=== PATIENT | female | born 1955 | race Caucasian/White ===

== ENCOUNTER 2016-08-26 05:20 | Inpatient (IN) | payer BC, OTHER ==
--- NOTE | 2016-08-20 17:59 | PREOPHP ---
DATE OF ADMISSION: 08/26/2016 PREOPERATIVE INTERNAL MEDICINE CONSULTATION The patient to have surgery with Dr. Chele Amezcua on 08/26/2016. REASON FOR CONSULTATION: Consultation requested by Dr. Chele Amezcua for medical evaluation and clearance of a 61-year-old woman about to undergo surgery. Thank you, Dr. Amezcua, for allowing us to participate in the care of this patient. HISTORY OF PRESENT ILLNESS: Hattiese Luis Liang, a 61-year-old woman with issues with her neck, i s currently being admitted for correction of the above. In terms of a prior surgical history, patient has had a with the delivery of her one son a nd tonsil and adenoid surgery. Other than that, she has had no medical hospitalizations, no other s urgery. She has not broken any bones. MEDICATIONS: She currently only takes allergy medicines, namely Tigist-D as needed and no other pr escription drugs. ALLERGIES: SHE IS NOT ALLERGIC TO ANY MEDICATIONS, BUT DOES HAVE SOME ENVIRONMENTAL ALLERGIES. SOCIAL HISTORY: The patient is , has 1 son. She does not smoke. Alcohol socially. Does dr ink coffee, is employed and usually has no difficulty sleeping at night. FAMILY HISTORY: Both parents are . Father at age 53 of an OR. Mother is 82 when she of a stroke and hypertension. One brother has diabetes. Two sisters, one has hypertension and one had ovarian cancer, but they are both living. There is a family history of diabetes, heart, hy pertension, strokes, cancer. No thyroid history. REVIEW OF SYSTEMS HEENT: Denies any significant headaches. CARDIORESPIRATORY: Denies any chest pain or shortness of breath. GASTROINTESTINAL: No melena or hematemesis. GENITOURINARY: No urgency, frequency. GYNECOLOGIC: Post-menopause, up to date with her lockstitch tunnel elastic operator. MUSCULOSKELETAL: Positive for neck pain. She does have some issues with her right and left knee, but not as severe as her neck. NEUROPSYCHIATRIC: Unremarkable. GENERAL HEALTH: As above. PHYSICAL EXAMINATION: VITAL SIGNS: The patient's blood pressure was 112/70, pulse was 80 and regular, respirations were 1 8, temperature 97.8, height 5 feet 4 inches, weight 148 pounds. GENERAL: The patient was noted to be a well-developed, well-nourished female, alert and cooperative , in no apparent acute distress, oriented to time, place, and person. HEAD, EARS, EYES, NOSE AND THROAT: Head was atraumatic. Eyes: Pupils were equal, reacted to light and accommodation. Fundi were benign. Tympanic membranes were unremarkable. Nose was negative. Mouth was unremarkable. Fair oral hygiene was present. NECK: Supple without any rigidity. Trachea was midline. Thyroid was within normal limits. Neck v eins were flat. Carotid pulses were equal. No bruits were heard. BACK: Unremarkable. CHEST: Symmetrical. BREASTS AND AXILLARY: Did not reveal any masses. LUNGS: Clear to percussion and auscultation. HEART: PMI is fifth intercostal space at the midclavicular line. Regular sinus rhythm was noted. No significant murmurs, rubs, or gallops being elicited. ABDOMEN: Soft, good bowel sounds were noted. No significant organomegaly, masses, or tenderness. GENITALIA: Normal female external genitalia. PELVIC/RECTAL: Up to date with her lockstitch tunnel elastic operator unremarkable. EXTREMITIES: Did not reveal any clubbing, edema or cyanosis. Peripheral pulses were physiologic. SKIN: Moist and warm without any eruptions. No gross lymphadenopathy was noted. NEUROLOGIC: Grossly intact. IMPRESSION: 1. Cervical disk disease. 2. Menopausal syndrome. 3. Degenerative joint disease. 4. Stable health. DISCUSSION: Review of laboratory and other data revealed the following: The patient's chemistry pa raudel including electrolytes, glucose, BUN, creatinine, liver function tests, calcium, thyroid functio n tests, CBC, sed rate, UA, PT and PTT were basically unremarkable, minimally elevated white count a nd no sign of infection being with no symptoms and no other complaints. Patient's EKG was normal, a s was her chest x-ray. DISCUSSION: Dr. Amezcua, I see no contraindication to this patient undergoing current proposed lynn rgery under desired form of anesthesia. I feel she is a suitable candidate at this particular point in time and we will be more than happy to follow her along with you during her stay at [facility]. Thank you again, Dr. Amezcua, for allowing us to participate in the care of this patient. Dictated By: JAREN WILLS/VIVI Conf#: [id number] DID#: [id number]
[~2016-08-26] VITALS: Ht 161.3 cm; Wt 68.9 kg
[2016-08-26] VITALS (27 sets, daily range): BP systolic 131–160; BP diastolic 55–82; PULSE 65–96; RESP 13–21; Ht 161.3 cm; Wt 68.9 kg
[2016-08-26] MEDS ORDERED: vicodin PO (05:58)
[2016-08-26] MEDS ORDERED: CEFAZOLIN 2 GM/50 ML (PMX) 50 ML IVPB SCH (06:30)
[2016-08-26] MEDS ORDERED: LACTATED RINGER'S 1,000 ML IV* SCH (06:30)
--- NOTE | 2016-08-26 06:53 | HPN ---
Date/Time of Note Date/Time of Note DATE: 08/26/16 TIME: 06:53 Interval H&P Admission Note Pt. seen H&P reviewed: No system changes MILLI ONEILL MD Aug 26, 2016 06:53
[2016-08-26] MEDS ORDERED: HYDROmorphONE 2 MG/ML SYG ONE (06:55)
[2016-08-26] MEDS ORDERED: DEXAMETHASONE 4 MG/ML 1 ML INJ ONE (06:55)
[2016-08-26] MEDS ORDERED: PROPOFOL 20 ML ONE (06:55)
[2016-08-26] MEDS ORDERED: METOCLOPRAMIDE 10 MG INJ ONE (06:55)
[2016-08-26] MEDS ORDERED: SUCCINYLCHOLINE CHLORIDE 100 MG/5 ML SYG IV ONE (06:55)
[2016-08-26] MEDS ORDERED: MIDAZOLAM 1 MG/ML 2 ML INJ ONE (06:55)
[2016-08-26] MEDS ORDERED: ROCURONIUM 50 MG INJ ONE (06:55)
[2016-08-26] MEDS ORDERED: HYDROmorphONE 1 MG/ML SYG IV PRN (07:00)
[2016-08-26] MEDS ORDERED: DIPHENHYDRAMINE 50 MG INJ IV PRN ×2 (07:00→08:00)
[2016-08-26] MEDS ORDERED: CEPASTAT LOZENGE MT PRN (07:00)
[2016-08-26] MEDS ORDERED: CYCLOBENZAPRINE 10 MG TAB PO PRN (07:00)
[2016-08-26] MEDS: CEFAZOLIN 1 GM/50 ML (PMX) 50 ML IVPB SCH ×3 (07:00→22:56)
[2016-08-26] MEDS ORDERED: BISACODYL 10 MG SUPP PR PRN (07:00)
[2016-08-26] MEDS ORDERED: ONDANSETRON 4 MG INJ IV PRN ×2 (07:00→08:00)
[2016-08-26] MEDS ORDERED: ACETAMINOPHEN 325 MG TAB PO PRN (07:00)
[2016-08-26] MEDS ORDERED: DIPHENHYDRAMINE 25 MG CAP PO PRN (07:00)
[2016-08-26] MEDS ORDERED: HYDROCODONE/APAP (10/325) TAB PO PRN ×2 (07:00)
[2016-08-26] MEDS ORDERED: DESFLURANE 15 MIN ONE (07:00)
[2016-08-26] MEDS ORDERED: NALOXONE (0.4 MG/ML) INJ IV PRN (07:00)
[2016-08-26] MEDS ORDERED: PROPOFOL 200 MG INJ ONE (07:00)
[2016-08-26] MEDS ORDERED: POLYMYXIN/BACITRACIN 1L IRRIG ONE (07:12)
[2016-08-26] MEDS ORDERED: SODIUM CL BACTERIOSTATIC 30 ML INJ ONE (07:12)
[2016-08-26] MEDS ORDERED: THROMBIN 5000 UNIT VIAL ONE (07:12)
[2016-08-26] MEDS ORDERED: BUPIVACAINE 0.25%/EPI (SDV) 30 ML INJ ONE (07:12)
[2016-08-26] MEDS ORDERED: GELATIN SIZE 100 SPONGE ONE (07:12)
[2016-08-26] MEDS ORDERED: SURGIFOAM POWDER 1 GM KIT ONE (07:17)
[2016-08-26] MEDS ORDERED: CEFAZOLIN 1 GM INJ ONE (07:42)
[2016-08-26] MEDS ORDERED: HYDROmorphONE (0.2 MG/ML) 10ML SYG IV PRN ×2 (08:00)
[2016-08-26] MEDS ORDERED: METOCLOPRAMIDE 10 MG INJ IV PRN (08:00)
[2016-08-26] MEDS ORDERED: MEPERIDINE 25 MG INJ IV PRN (08:00)
[2016-08-26] MEDS: DOCUSATE SODIUM 100 MG CAP PO SCH ×2 (09:00→20:31)
[2016-08-26] MEDS: HYDROmorphONE (0.2 MG/ML) 10ML SYG IV PRN ×4 (10:24→10:38)
[2016-08-26] MEDS: HYDROmorphONE 0.2 MG/ML PCA IV SCH ×2 (10:42→18:55)
--- NOTE | 2016-08-26 10:46 | OPR ---
DATE OF OPERATION: 08/26/2016 PREOPERATIVE DIAGNOSES: C5 to C6, C6 to C7 cervical disk disease and stenosis with radiculopathy. POSTOPERATIVE DIAGNOSIS: C5 to C6, C6 to C7 cervical disk disease and stenosis with radiculopathy. PROCEDURE PERFORMED: 1. Anterior cervical diskectomy and spinal cord decompression at C5 to C6, C6 to C7. 2. Anterior cervical fusion at C5 to C6 and C6 to C7. 3. Placement of intervertebral biomechanical device at C5 to C6 and C6 to C7. 4. Anterior cervical hardware placement at C5, C6, C7. 5. Use of allograft. 6. Use of C-arm fluoroscopy with interpretation without radiologist present. 7. Use of operative microscope. 8. Intraoperative neuromonitoring (2 hours). IMPLANTS: 1. NeuroStructures Transom 26 mm plate with 12 mm screws. 2. NeuroStructures Cavetto 4 mm cage at C5 to C6 and 5 mm cage at C6 to C7. 3. Fibergraft. PRIMARY SURGEON: Chele Amezcua MD TRAVELING PHLEBOTOMIST: RICHARDSON Acuna NEED FOR POLE CUTTER: During this spinal surgical procedure, my assistant branch manager was used to retract and protect the spinal nerves and dural sac. My assistant branch manager also employed the suction catheters to evacuate blood from the surgical field to improve visualization of the neural structures. The assistant branch manager was medically necessary to facilitate the completion of the surgery in a safe and expeditious manner. State of [place] regulations, as well as hospital bylaws, preclude the use of non-licensed health care personnel, such as operating room technicians, to perform these functions. FINDINGS: The patient had stenosis at C5 to C6 and C6 to C7. Neuromonitoring revealed right C5 amplitude down 40%, right C6 amplitude down 50%, right C7 amplitude down 40%. At the end of the case, nerve signals returned to normal. ESTIMATED BLOOD LOSS: 40 mL. DRAINS: None. SPECIMENS: Disk was sent to pathology. COMPLICATIONS OF PROCEDURES: None. ANESTHESIOLOGIST: Rea Cao MD TYPE OF ANESTHESIA: General. INDICATIONS FOR PROCEDURE: This is a 61-year-old female with cervical radiculopathy in the setting of stenosis. She has failed nonoperative measures ; therefore, I recommended proceeding with the above-mentioned surgery. Preoperatively, we discussed the risks, benefits, and alternatives. She understood and wished to proceed. DESCRIPTION OF PROCEDURE IN DETAIL: The patient was identified in the preoperative holding area, given Ancef antibiotic, taken to the operating room, where she was successfully placed under general anesthesia by Dr. Cao. Neuromonitoring leads were placed, sequential compressive devices were applied. Neuromonitoring was utilized during the procedure for 2 hours to include SSEP , MEP, and EMG. This was performed by [employer]. Start time was 7:50 a.m., closure time was 9:15 a.m. The patient was placed on the operating room table in the supine position. Towel rolls were placed behind the neck and between the scapular blades and the neck was extended. Arms were tucked to the side. Neck was prepped and draped in the usual sterile fashion. Using the C-arm fluoroscope, I identified the incision site. I anesthetized the skin with Marcaine and epinephrine. Incision was made through the skin on the left side of the neck. I incised the platysma in line with the skin incision. I then identified an interval between the sternocleidomastoid and strap muscles and identified the anterior spine. I then placed a bent spinal needle into what was felt to be the C6 to C7 level and I took a lateral film to confirm this level. I then subperiosteally dissected the longus colli musculature and placed self-retaining retractors. The anesthesiologist deflated and reinflated the endotracheal cuff. I used a rongeur to remove the anterior osteophytes at C5 to C6 and C6 to C7. I then initially made an annulotomy at C6 to C7 with radical diskectomy using curettes, Kerrison punches , pituitary rongeurs and a high-speed bur. I decompressed the spinal cord and neural foramina bilaterally. I prepared the endplates. I placed various trials and chose the appropriate graft height. I then took the PEEK cage within which I placed allograft and I impacted the intervertebral biomechanical device at C6 to C7 to complete the fusion at this level. I then turned my attention to the C5 to C6 level. This level was collapsed and therefore I used a bur to remove the inferior endplate of C5. I then used a high-speed bur and decompressed the posterior spine and I was able to use a Kerrison punch to decompress the spinal cord and neural foramina bilaterally with removal of the posterior longitudinal ligament. I then placed various trials and chose the appropriate graft height. I then took the PEEK cage within which I placed allograft and I impacted the intervertebral biomechanical device into the C5 to C6 level to complete the fusion at this level. At this point, all nerve signals returned to normal. I then took the anterior cervical plate and affixed this anteriorly and placed 12 mm screws at C5, C6 and C7. I then locked down the screws. Once this was done, I took final AP and lateral images and I was happy with placement of the hardware and alignment of the spine. The wound was then irrigated. Hemostasis was achieved with Surgifoam. The wound was dry and therefore, I elected not to place a drain. Retractors were removed. Of note, the decompression was performed under the microscope and at this point, the microscope was taken off the field. I closed the platysma. I closed the platysma with a running 2-0 Vicryl stitch. I then closed the subcutaneous tissue with a 3-0 Vicryl stitch. Dermabond was then applied. The patient was then awakened from anesthesia and taken to recovery room in stable condition. Lap, sponge, and instrument counts were correct x2. There were no apparent complications during the procedure. The patient will be admitted to the orthopedic sales for routine postoperative care to include pain control, neurovascular checks, antibiotics, and physical therapy. Dictated By: CHELE PARSONS/VIVI Conf#: [id number] DID#: [id number] MTDD
[2016-08-26] MEDS: D5W-0.45 NACL + KCL 20 MEQ 1,000 ML IV SCH ×2 (11:35→16:08)
--- NOTE | 2016-08-26 12:20 | RADRPT ---
PROCEDURE: X-ray fluoroscopy guidance CLINICAL INDICATION: C5-C7 fusion, fluoroscopic guidance. TECHNIQUE: Fluoroscopic guidance was utilized for an intraoperative procedure. COMPARISON: None available FINDINGS: Fluoroscopic guidance was utilized for and intraoperative procedure. 17 seconds of fluoroscopy time was utilized for the procedure. 5 x-ray images were obtained during the procedure in progress. Final images demonstrate an anterior C5-C7 fusion in grossly appropriate position. IMPRESSION: X-ray fluoroscopic guidance utilized for intraoperative procedure. C5-C7 anterior fusion in grossly appropriate position. Please see procedure note for details. RPTAT: AA .Dakotah Askew MD, Date Time Electronically viewed and signed by .Dakotah Askew MD, MD on 08/26/2016 12:20 .P/
--- NOTE | 2016-08-26 13:02 | CONS ---
Date/Time of Note Date/Time of Note DATE: 08/26/16 TIME: 13:00 Assessment/Plan Assessment/Plan Problems: (1) Status post cervical spinal fusion Status: Acute Comment: She is recuperating postoperatively without incident. We will continue to keep a careful eye on her. (2) Cervical stenosis of spine Status: Chronic Comment: Quite possibly a good result Consultation Date/Type/Reason Admit Date/Time Aug 26, 2016 at 05:20 Initial Consult Date 08/26/2016 Type of Consultation: Internal medicine Reason for Consultation Postop assistance Referring Provider: MILLI ONEILL MD 24 HR Interval Summary Free Text/Dictation Janeen 7-year-old female status post anterior approach cervical spine fusion C5-C6 6 C7. Postoperatively she reports she is doing well and that her symptoms to the right arm and right shoulder that she had had preoperatively are gone as of this moment. Constitutional: no complaints Detailed Summary Respiratory: no complaints Cardiovascular: no complaints Gastrointestinal: no complaints Genitourinary: no complaints Exam/Review of Systems Vital Signs Vitals Vital Signs Date Time Temp Pulse Resp B/P Pulse Ox O2 Delivery O2 Flow Rate FiO2 08/26/16 12:18 16 08/26/16 12:11 Nasal Cannula 2.0 08/26/16 11:15 97.9 84 137/72 100 Exam Constitutional: alert, oriented Neck: other (Anterior neck left-sided surgical scar) Respiratory: clear to auscultation, normal air movement Cardiovascular: nl pulses, regular rate and rhythm Gastrointestinal: nl liver, spleen, non-tender, soft Medications Medications Current Medications Cefazolin Sodium/ Dextrose 50 ml @ 100 mls/hr ONCE IVPB ; Start 08/26/16 at 06: 30; Stop 08/26/16 at 22:00 Lactated Ringer's 1,000 ml @ 0 mls/hr Q0M IV* ; Start 08/26/16 at 06:30; Stop 08/26/16 at 22:00 Potassium Chloride/Dextrose/ Sod Cl 1,000 ml @ 100 mls/hr Q10H IV Last administered on 08/26/16t 11:35; Admin Dose 100 MLS/HR; Start 08/26/16 at 06:53 Cefazolin Sodium (Ancef 1 Gm/50 ml (Pmx)) 50 ml @ 100 mls/hr Q8H IVPB ; Start 08/26/16 at 07:00; Stop 08/26/16 at 23:29 Naloxone HCl (Narcan) 0.2 mg Q2M PRN IV RR 8 BREATHS/MIN OR LESS; Start at 07:00 Hydromorphone HCl (Dilaudid AVIONICS TEST TECHNICIAN) AVIONICS TEST TECHNICIAN to be started in PACU Q4PCA IV Last administered on 08/26/16t 10:42; Admin Dose 6 MG; Start 08/26/16 at 07:00 Acetaminophen/ Hydrocodone Bitart ([place] (10/325)) 1 tab Q4H PRN PO PAIN LEVEL 1-5; Start 08/26/16 at 07:00 Acetaminophen/ Hydrocodone Bitart ([place] (10/325)) 2 tab Q4H PRN PO PAIN LEVEL 6-10; Start 08/26/16 at 07:00 Hydromorphone HCl (Dilaudid) 0.2 mg Q1H PRN IV BREAKTHROUGH PAIN; Start at 07:00 Ondansetron HCl (Zofran Inj) 4 mg Q6H PRN IV NAUSEA AND/OR VOMITING; Start 04/03 at 07:00 Bisacodyl (Dulcolax Supp) 10 mg DAILY PRN ND CONSTIPATION; Start 08/26/16 at 07 :00 Docusate Sodium (Colace) 100 mg BID PO ; Start 08/26/16 at 09:00 Pantoprazole (Protonix Iv) 40 mg DAILY@06 IV ; Start 08/27/16 at 06:00 Al Hydrox/Mg Hydrox/Simethicone (Mag-Al Plus) 15 ml Q6H PRN PO CONSTIPATION/ DYSPEPSIA; Start 08/26/16 at 07:00 Acetaminophen (Tylenol Tab) 650 mg Q4H PRN PO HO OR TEMP GREATER THAN 101.3F; Start 08/26/16 at 07:00 Cyclobenzaprine HCl (Flexeril) 10 mg TID PRN PO MUSCLE SPASMS; Start 08/26/16 at 07:00 Phenol (Cepastat Lozenge) 1 lozenge PRN PRN MT SORE THROAT; Start 08/26/16 at 07:00 Diphenhydramine HCl (Benadryl) 25 mg Q6H PRN PO ITCHING; Start 08/26/16 at 07: 00 Diphenhydramine HCl (Benadryl) 25 mg Q6H PRN IV ITCHING; Start 08/26/16 at 07: 00 Miscellaneous Information 1. Hold AVIONICS TEST TECHNICIAN at 1,000... AVIONICS TEST TECHNICIAN IV ; Start 08/26/16 at 07: 00 CHESTER HENAO MD Aug 26, 2016 13:02
[2016-08-26] MEDS: AL HYDROX/MG HYDROX/SIMETH 30 ML CUP PO PRN (20:46)
[2016-08-27 00:50] VITALS: BP 123/59; RESP 20
[2016-08-27] MEDS: AL HYDROX/MG HYDROX/SIMETH 30 ML CUP PO PRN (02:33)
[2016-08-27] MEDS: D5W-0.45 NACL + KCL 20 MEQ 1,000 ML IV SCH (02:35)
[2016-08-27] MEDS: HYDROmorphONE 0.2 MG/ML PCA IV SCH (04:49)
[2016-08-27 04:58] LABS: ADD SCAN DIFF NO
[2016-08-27 04:59] LABS: ABNORMAL IP MESSAGE 1; BASOPHILS % 0.2 % (0.0-2.0); EOSINOPHILS # 0.1 10^3/ul (0.0-0.5); EOSINOPHILS % 0.5 % (0.0-7.0); HEMATOCRIT 39.4 % (37.0-47.0); HEMOGLOBIN 12.8 g/dl (12.0-16.0); LYMPHOCYTES % 22.5 % (15.0-51.0); MEAN CORPUSCULAR HEMOGLOBIN 29.2 pg (29.0-33.0); MEAN CORPUSCULAR HGB CONC 32.5 g/dl (32.0-37.0); MEAN PLATELET VOLUME 9.1 fl (7.4-10.4); MONOCYTES % 11.4 % (0.0-11.0); NEUTROPHIL # 11.4 10^3/ul (1.6-7.5); NEUTROPHILS % 64.9 % (39.0-77.0); PLATELET COUNT 306 10^3/UL (140-415); RED BLOOD COUNT 4.38 10^6/ul (4.20-5.40); RED CELL DISTRIBUTION WIDTH 14.9 % (11.5-14.5); WHITE BLOOD COUNT 17.5 10^3/ul (4.8-10.8)
[2016-08-27 05:19] LABS: CALCIUM 9.1 mg/dl (8.4-10.2); CREATININE 0.49 mg/dl (0.44-1.00); MAGNESIUM 2.1 mg/dl (1.7-2.5); POTASSIUM 4.2 mmol/L (3.5-5.1)
[2016-08-27] MEDS ORDERED: PANTOPRAZOLE 40 MG INJ IV SCH (06:00)
[2016-08-27 07:46] VITALS: BP 115/55; RESP 16
[2016-08-27] MEDS: DOCUSATE SODIUM 100 MG CAP PO SCH (08:36)
--- NOTE | 2016-08-27 14:05 | DS ---
DATE OF ADMISSION: 08/26/2016 DATE OF DISCHARGE: 08/27/2016 ADMITTING DIAGNOSIS: Cervical stenosis. DISCHARGE DIAGNOSIS: Cervical stenosis. PROCEDURE: Patient taken to the operating room on 08/26/2016 and underwent ACDF. HOSPITAL COURSE: The patient was admitted to the orthopedic sales after undergoing the above procedu re. Her postoperative course was uncomplicated. By postop day 1, she was deemed stable for dischar ge with followup arranged with the undersigned. Dictated By: MILLI ONEILL MD BB/NTS Conf#: [id number] DID#: [id number] CC: MILLI ONEILL MD;*EndCC*
== END 2016-08-27 11:20 | disposition home or self-care (01) | DRG 473 ==
LOC: REC 05:20 → MS1 11:26
PROVIDERS: ADMIT Specialist; ATTEND Specialist
PROC: 0RB30ZZ Excision of Cervical Vertebral Disc, Open Approach (ICD-10-PCS; 2016-08-26)
PROC: 0RG20A0 Fusion of 2 or more Cervical Vertebral Joints with Interbody Fusion Device, Anterior Approach, Anterior Column, Open Approach (ICD-10-PCS; principal; 2016-08-26 07:00)
DX: M50.122 Cervical disc disorder at C5-C6 level with radiculopathy (principal); M48.02 Spinal stenosis, cervical region; J44.9 Chronic obstructive pulmonary disease, unspecified
CPT/HCPCS: 72050; 80048; 83735; 85025; 97116; 97162; 97530; C1713; C9113; J0330; J0690; J1100; J1170; J2250; J2405; J2765; J3480